=== PATIENT | male | born 1950 | race Caucasian/White ===

== ENCOUNTER 2019-01-26 15:58 | Inpatient (IN) | payer MEDICARE, MEDICAID ==
[~2019-01-26] VITALS: Ht 157.5 cm; Wt 97.5 kg
[2019-01-26 16:42] LABS: BASOPHILS # (AUTO) 0.1 /CMM (0.0-0.2); BASOPHILS % (AUTO) 0.8 % (0.0-2.0); EOSINOPHILS % (AUTO) 0.9 % (0.0-6.0); HEMATOCRIT 40 % (39-51); HEMOGLOBIN 12.8 g/dL (13.5-17.5); LYMPHOCYTES % (AUTO) 9.3 % (20.0-44.0); MEAN CORPUSCULAR HGB CONC 32 g/dl (31.0-36.0); MEAN CORPUSCULAR VOLUME 88 fL (80-96); MONOCYTES # (AUTO) 0.7 /CMM (0.1-1.30); MONOCYTES % (AUTO) 6.4 % (2.0-12.0); NEUTROPHILS # (AUTO) 8.7 /CMM (1.8-8.9); NEUTROPHILS % (AUTO) 82.6 % (43.0-81.0); PLATELET COUNT (AUTO) 224 /CMM (150-450); RED BLOOD CELL COUNT(AUTO) 4.52 MIL/uL (4.5-6.0); WHITE BLOOD COUNT (AUTO) 10.6 K/uL (4.3-11.0)
--- NOTE | 2019-01-26 16:44 | NUR ---
PATIENT ARRIVED BY WHEELCHAIR. SENT BY DR. RASCON FOR EVALUATION . PATIENT WITH C/O SOB x 2 WEEKS. NO ACUTE DISTRESS AT THIS TIME. DENIES ANY PAIN OR DISCOMFORT.
--- NOTE | 2019-01-26 16:50 | NUR ---
STREETCAR CONDUCTOR AT BEDSIDE
[2019-01-26 16:52] LABS: CALCIUM, SERUM 9.1 mg/dL (8.5-10.1); POTASSIUM 3.3 mmol/L (3.5-5.1)
[2019-01-26] MEDS ORDERED: GABA-534 PO (18:03)
[2019-01-26] MEDS ORDERED: ISOS30TA6 PO (18:03)
[2019-01-26] MEDS ORDERED: DONE5TAB34 PO (18:03)
[2019-01-26] MEDS ORDERED: LISI10TA5 PO (18:03)
[2019-01-26] MEDS ORDERED: ASPI-1152 PO (18:03)
[2019-01-26] MEDS ORDERED: ESOM40CA52 PO (18:04)
[2019-01-26] MEDS ORDERED: TRAZ150T75 PO (18:04)
[2019-01-26] MEDS ORDERED: APIX5TAB PO (18:04)
[2019-01-26] MEDS ORDERED: VALS320T16 PO (18:04)
[2019-01-26] MEDS ORDERED: ATOR40TA PO (18:04)
[2019-01-26] MEDS ORDERED: SITA1TAB6 PO (18:04)
[2019-01-26] MEDS ORDERED: TAMS-12 PO (18:04)
[2019-01-26] MEDS ORDERED: LATA2.5D7 EACHEYE (18:11)
--- NOTE | 2019-01-26 18:13 | NUR ---
COAL CAGER/MED RECON UNABLE TO OBTAINED INFO RE: HOME MEDICATION. CALLED AND OBTAINED INFO FROM [facility] (PREFERRED PHARMACY) PER PATIENT REQUESTED. PRIMARY NURSE AWARE.
[2019-01-26] MEDS ORDERED: AMLO1TAB15 PO (18:29)
[2019-01-26] MEDS ORDERED: BUME1TAB4 PO (18:29)
[2019-01-26] MEDS ORDERED: CARV3.122 PO (18:29)
[2019-01-26] MEDS ORDERED: INSU100V7 SQ (18:34)
--- NOTE | 2019-01-26 19:13 | NUR ---
GOT BED 118-2 BUT PLEASE TAKE AFTER 193
--- NOTE | 2019-01-26 21:04 | NUR ---
report given to BK SUGEY GROVE. WILL TRANSPORT Pt PER ACLS PROTOCOL.
[2019-01-26 21:07] VITALS: BP 117/80
--- NOTE | 2019-01-26 21:07 | NUR ---
BOWLING BALL PATCHERROVING TESTER LABORATORY NOTE PATIENT ARRIVED IN [facility] FROM ER. PATIENT ABLE TO WALK TO BED, GAIT STEADY. PATIENT A.O X 4. PATIENT C/O OF SOB. PATIENT PLACED ON 5 L 02, SATURATION POST EXERCISE IN THE HIGH 80'S MD AWARE. PATIENT AFIB ON THE MONITOR HR CONTROLLED INT HE 70'S. PATIENT DENIES CHEST PAIN. PATIENT PRESENTS WITH RALES BILATERALLY IN THE LOWER LOBES. SKIN IS GROSSLY INTACT. LFA 18 G IV PATENT NO S.S OF INFECTION AND INFILTRATION. PATIENT ORIENTED TO UNIT, GOALS FOR STAY EXPLAINED. PATIENT VERBALIZES UNDERSTANDING. SAFETY PRECAUTIONS IN PLACE, BED RAILS UP X 2. RN WILL CONTINUE TO MONITOR FOR ACUTE CHANGES.
--- NOTE | 2019-01-26 21:50 | NUR ---
STEEL CRANE OPERATOR NOTE PATIENT SATURATION LOW IN THE HIGH 80'S MD AWARE, PATIENT SOB, BUT PRESENTS NO CYANOSIS, OR CHANGE IN LOC. Addendum: 01/26/19 at 2153 by JASON PAZ RN Amended: Links added.
[2019-01-26] MEDS ORDERED: Z GUARD REMEDY 2 OZ OINT TP PRN (22:30)
[2019-01-26] MEDS ORDERED: ACETAMINOPHEN 325 MG TABLET PO PRN (22:30)
[2019-01-26] MEDS ORDERED: POTASSIUM CHLORIDE 20 MEQ TAB.PRT.SR PO ONE (22:30)
[2019-01-26] MEDS ORDERED: ONDANSETRON HCL/PF 4 MG/2 ML VIAL IVP PRN (22:30)
[2019-01-26] MEDS ORDERED: DEXTROSE 50%-WATER 50 ML DISP.SYRIN IV PRN (22:30)
[2019-01-26] MEDS ORDERED: BUMETANIDE INJ 6 MG in IV NS 0.9% 36 ML IV ONE (22:30)
[2019-01-26] MEDS: TRAZODONE 50 MG TABLET PO SCH (22:48)
[2019-01-26] MEDS ORDERED: BUMETANIDE INJ 0.25 MG/ML VIAL ONE ×2 (22:54→23:00)
[2019-01-27] VITALS (9 sets, daily range): BP systolic 117–138; BP diastolic 68–93
--- NOTE | 2019-01-27 01:00 | NUR ---
RN NOTES RECEIVED REPORT FROM SUGEY GOMEZ FOR KOBI
--- NOTE | 2019-01-27 01:28 | NUR ---
BIOINFORMATICS SOFTWARE ENGINEER NOTE POC ENDORSED TO HORTENCIA MAYES FOR KOBI
[2019-01-27 04:31] LABS: BASOPHILS # (AUTO) 0.1 /CMM (0.0-0.2); BASOPHILS % (AUTO) 0.9 % (0.0-2.0); EOSINOPHILS % (AUTO) 1.7 % (0.0-6.0); HEMATOCRIT 35 % (39-51); HEMOGLOBIN 11.4 g/dL (13.5-17.5); LYMPHOCYTES # (AUTO) 1.2 /CMM (0.8-4.8); LYMPHOCYTES % (AUTO) 18.4 % (20.0-44.0); MEAN CORPUSCULAR HGB CONC 33 g/dl (31.0-36.0); MEAN CORPUSCULAR VOLUME 86 fL (80-96); MONOCYTES # (AUTO) 0.6 /CMM (0.1-1.30); MONOCYTES % (AUTO) 9.4 % (2.0-12.0); NEUTROPHILS # (AUTO) 4.6 /CMM (1.8-8.9); NEUTROPHILS % (AUTO) 69.6 % (43.0-81.0); PLATELET COUNT (AUTO) 203 /CMM (150-450); WHITE BLOOD COUNT (AUTO) 6.6 K/uL (4.3-11.0)
[2019-01-27 04:57] LABS: ALBUMIN 3.3 g/dL (3.4-5.0); BILIRUBIN,TOTAL 0.9 mg/dL (0.2-1.0); CALCIUM, SERUM 8.6 mg/dL (8.5-10.1); CREATININE 0.9 mg/dL (0.6-1.3); MAGNESIUM 1.3 mg/dL (1.8-2.4); PHOSPHORUS 3.4 mg/dL (2.5-4.9); POTASSIUM 3.6 mmol/L (3.5-5.1); TOTAL PROTEIN, SERUM 6.9 g/dL (6.4-8.2)
[2019-01-27 05:04] LABS: THYROID STIMULATING HORMONE 3.205 uIU/mL (0.358-3.74)
--- NOTE | 2019-01-27 06:55 | NUR ---
RN NOTES PT IN STABLE CONDITION. NO ACUTE CHANGES THROUGHOUT THE SHIFT. ALL NEEDS ANTICIPATED. SAFETY MEASURES OBSERVED AT ALL TIMES. ENDORSED TO AM SHIFT RN FOR KOBI
--- NOTE | 2019-01-27 07:30 | NUR ---
RN AM SHIFT RECEIVED PATIENT FROM NIGHT NURSE, ALERT AND ORIENTED, BED IN LOW POSITION, MONITOR ON, SIDE RAILS UP, IV PATENT AND INTACT. AMBULATORY WITH ASSIST, CHANGED CONDOM CATHETER. AFIB CONTROLLED MD AWARE OF CONDITON. PEDIATRIC CLINICAL DIETICIAN SAW PATIENT ABG LABS DONE. UA SENT TO LAB.
[2019-01-27] MEDS: *INSULIN REGULAR(HUMULIN R)HUM 100 UNIT/ML VIAL SQ PRN (08:03)
[2019-01-27] MEDS: BLOOD SUGAR DIAGNOSTIC 1 EACH STRIP IN SCH ×4 (08:04→22:00)
[2019-01-27] MEDS: GABAPENTIN 300 MG CAPSULE PO SCH ×2 (08:09→16:43)
[2019-01-27] MEDS: TAMSULOSIN 0.4 MG CAP.SR.24H PO SCH ×2 (08:10→16:43)
[2019-01-27] MEDS: AMLODIPINE BESYLATE 10 MG TABLET PO SCH (08:10)
[2019-01-27] MEDS: DONEPEZIL 5 MG TABLET PO SCH (08:10)
[2019-01-27] MEDS: VALSARTAN 80 MG TABLET PO SCH (08:10)
[2019-01-27] MEDS: CARVEDILOL 3.125 MG TABLET PO SCH ×2 (08:10→16:44)
[2019-01-27] MEDS: APIXABAN 5 MG TABLET PO SCH ×2 (09:03→16:43)
[2019-01-27] MEDS: ASPIRIN EC 81 MG TABLET.DR PO SCH (09:30)
[2019-01-27 10:07] LABS: ABG BASE EXCESS 10.8 mmol/L; ABG OXYGEN SATURATION 92.5 % (92.0-98.5); ABG PCO2 65.1 mmHg (35.0-45.0); ABG PH 7.386 (7.350-7.450); ABG PO2 70.6 mmHg (75.0-100.0); AaDO2 285.6 mmHg; COHb 0.7 % (0.5-1.5); MetHb 0.3 % (0.0-1.5); O2Hb 91.6 % (94.0-97.0); SITE, ABG Right Radial; VENT MODE, BG SIMPLE MASK
[2019-01-27] MEDS: POTASSIUM CHLORIDE 20 MEQ TAB.PRT.SR PO SCH ×2 (10:30→11:16)
[2019-01-27] MEDS: Magnesium 1GM/D5W 100ML PREMIX 100 ML IV SCH ×4 (10:30→14:19)
[2019-01-27] MEDS: FUROSEMIDE 100 MG/10 ML VIAL IV SCH ×3 (10:32→17:03)
--- NOTE | 2019-01-27 11:00 | NUR ---
RN NOTE CARDIOLOGY SAW PATIENT, NEW ORDERS CARRIED OUT. PATIENT TOLERATING WELL. 1500 OUTPUT FOR SHIFT SO FAR. ARTIFACTS CONSERVATOR SAW PATIENT, ABGS DONE AWARE OF RESULTS. PATIETN IS TOLERATING SIMPLE FACE MASK AT 10 LITERS AT THIS TIME IN ORDER TO MAINTAIN O2 ABOVE 90%. CONTINUE TO MONITOR.
[2019-01-27 12:26] LABS: APPEARANCE,URINE CLEAR (CLEAR); BILIRUBIN,URINE NEGATIVE (NEGATIVE); BLOOD, URINE NEGATIVE Ery/uL (NEGATIVE); COLOR,URINE YELLOW (YELLOW); KETONES,URINE NEGATIVE (NEGATIVE); LEUKOCYTE ESTERASE ,URINE NEGATIVE (NEGATIVE); NITRITE, URINE NEGATIVE (NEGATIVE); PROTEIN,URINE NEGATIVE (NEGATIVE); UGLUCOSE NEGATIVE (NEGATIVE); UROBILINOGEN,URINE 0.2 EU/dL (0.2)
[2019-01-27 12:45] LABS: CREATININE, URINE 93.4 MG/DL (30.0-125.0); URINE TOTAL PROTEIN 30.2 mg/dL (0-11.9)
[2019-01-27] MEDS: INSULIN REGULAR, HUMAN 100 UNIT/ML 3 ML VIAL SQ PRN ×2 (12:45→21:51)
[2019-01-27 13:21] LABS: EOSINOPHIL,URINE None Seen
[2019-01-27] MEDS: ATORVASTATIN 40 MG TABLET PO SCH (18:30)
[2019-01-27] MEDS: TRAZODONE 50 MG TABLET PO SCH (21:06)
[2019-01-27] MEDS: LATANOPROST EYE DROP 0.005% 2.5 ML BOTTLE EACHEYE SCH (21:30)
[2019-01-27] MEDS: INSULIN GLARGINE, 100 UNIT/ML CARTRIDGE SQ SCH (21:31)
[2019-01-28] VITALS: BP 136/77
[2019-01-28 04:00] VITALS: BP 135/75
[2019-01-28] MEDS: INSULIN REGULAR, HUMAN 100 UNIT/ML 3 ML VIAL SQ PRN ×4 (05:41→17:46)
--- NOTE | 2019-01-28 05:57 | NUR ---
RN NOTES IN BED RECEIVED AWAKE, ALERT AND ORIENTED. ABLE TO COMMUNICATE NEEDS VERBALLY. ON AVAPAP AT MIDNIGHT, TOLERATED WELL. NO COMPLAINT OF PAIN OR DISCOMFORT. WILL ENDORSE TO NEXT SHIFT FOR CONTINUITY OF CARE.
[2019-01-28 07:05] LABS: BASOPHILS % (AUTO) 0.6 % (0.0-2.0); HEMATOCRIT 35 % (39-51); HEMOGLOBIN 11.7 g/dL (13.5-17.5); MEAN CORPUSCULAR HGB CONC 34 g/dl (31.0-36.0); MEAN CORPUSCULAR VOLUME 87 fL (80-96); MONOCYTES # (AUTO) 0.7 /CMM (0.1-1.30); MONOCYTES % (AUTO) 10.5 % (2.0-12.0); NEUTROPHILS # (AUTO) 4.5 /CMM (1.8-8.9); NEUTROPHILS % (AUTO) 70.9 % (43.0-81.0); PLATELET COUNT (AUTO) 197 /CMM (150-450); RED BLOOD CELL COUNT(AUTO) 3.99 MIL/uL (4.5-6.0); WHITE BLOOD COUNT (AUTO) 6.4 K/uL (4.3-11.0)
[2019-01-28 07:11] LABS: BILIRUBIN,TOTAL 1.1 mg/dL (0.2-1.0); CALCIUM, SERUM 8.1 mg/dL (8.5-10.1); CREATININE 0.8 mg/dL (0.6-1.3); MAGNESIUM 1.7 mg/dL (1.8-2.4); PHOSPHORUS 2.8 mg/dL (2.5-4.9); POTASSIUM 3.1 mmol/L (3.5-5.1); TOTAL PROTEIN, SERUM 6.4 g/dL (6.4-8.2)
--- NOTE | 2019-01-28 07:45 | NUR ---
RN NOTE: RECEIVED PATIENT IN BED, AWAKE, ALERT AND VERBALLY RESPONSIVE. PATIENT WAS ON BIPAP PER MD ORDER AND WILL INFORM THE RT TO REMOVE IT. ON OWNER ORAL SURGEON A. FIB CONTROLLED HR= 89. DENIED ANY PAIN. (L) FOREARM IV SITE NOTED PATENT AND INTACT. HOB ELEVATED. BED ALARMED AND LOCKED AT ALL TIMES. CALL LIGHT WITHIN REACH. NEEDS ANTICIPATED.
[2019-01-28] MEDS: BLOOD SUGAR DIAGNOSTIC 1 EACH STRIP IN SCH ×4 (07:49→21:34)
[2019-01-28 08:00] VITALS: BP 137/77
--- NOTE | 2019-01-28 09:05 | NUR ---
RN NOTE: SPOKE WITH DR. TAMEZ IN THE UNIT AND MADE HIM AWARE ABOUT THE PATIENT'S CONDITION FROM LAST NIGHT PER PM SHIFT NURSE. PER PM SHIFT NURSE, THE PATIENT WAS DESATURATING AT 83% LAST NIGHT AND WAS PLACED ON BIPAP. CLARIFIED WITH MD REGARDING THE O2 SATURATION. PER DR. TAMEZ, OK TO KEEP THE PATIENT'S O2 SATURATION BETWEEN 88-90%. ORDER, NOTED AND CARRIED OUT. PATIENT MADE AWARE.
[2019-01-28 09:11] LABS: ABG BASE EXCESS 12.6 mmol/L; ABG OXYGEN SATURATION 85.4 % (92.0-98.5); ABG PCO2 61.5 mmHg (35.0-45.0); ABG PH 7.425 (7.350-7.450); ABG PO2 51.4 mmHg (75.0-100.0); AaDO2 192.2 mmHg; COHb 1.2 % (0.5-1.5); MetHb 0.4 % (0.0-1.5); SITE, ABG Right Radial; VENT MODE, BG 6L NC
--- NOTE | 2019-01-28 09:18 | NUR ---
RN NOTE: INFORMED DR. TAMEZ REGARDING THE ABG RESULT THIS MORNING WITH O2 6L/MIN VIA NC AND PATIENT WAS SATURATING 85%. PER MD, SWITCH TO VENTURI MASK TO TITRATE O2 SATURATION BETWEEN 88-90%. RT DIAZ WAS MADE AWARE.
[2019-01-28] MEDS: TAMSULOSIN 0.4 MG CAP.SR.24H PO SCH ×2 (09:33→17:14)
[2019-01-28] MEDS: VALSARTAN 80 MG TABLET PO SCH (09:34)
[2019-01-28] MEDS: DONEPEZIL 5 MG TABLET PO SCH (09:35)
[2019-01-28] MEDS: AMLODIPINE BESYLATE 10 MG TABLET PO SCH (09:35)
[2019-01-28] MEDS: GABAPENTIN 300 MG CAPSULE PO SCH ×2 (09:35→17:14)
[2019-01-28] MEDS: ASPIRIN EC 81 MG TABLET.DR PO SCH (09:35)
[2019-01-28] MEDS: CARVEDILOL 3.125 MG TABLET PO SCH ×2 (09:36→17:39)
[2019-01-28] MEDS: APIXABAN 5 MG TABLET PO SCH ×2 (09:37→17:14)
[2019-01-28] MEDS: FUROSEMIDE 40 MG/4 ML VIAL IV SCH ×3 (10:35→17:14)
[2019-01-28] MEDS: Magnesium 1GM/D5W 100ML PREMIX 100 ML IV SCH ×2 (10:35→11:48)
[2019-01-28] MEDS: POTASSIUM CHLORIDE 20 MEQ TAB.PRT.SR PO SCH ×5 (10:36→14:56)
[2019-01-28 12:00] VITALS: BP 128/80
[2019-01-28 16:00] VITALS: BP 109/66
[2019-01-28] MEDS: ATORVASTATIN 40 MG TABLET PO SCH (17:14)
--- NOTE | 2019-01-28 19:44 | NUR ---
RN NOTE: SPOKE WITH DR. FAROOQ REGARDING THE PATIENT'S DOWNGRADE TO MEDSURG, BUT PATIENT HAS AN ORDER FOR NOCTURNAL BIPAP. PER DR. FAROOQ, OK TO KEEP THE PATIENT ON TELEMETRY. BEDSIDE REPORT GIVEN TO PM SHIFT NURSE FOR CONTINUITY OF CARE. PATIENT REMAINED ON STABLE CONDITION.
--- NOTE | 2019-01-28 19:55 | NUR ---
RN NOTE: BEDSIDE REPORT GIVEN TO PM SHIFT NURSE FOR CONTINUITY OF CARE. PATIENT WAS S/P SACRAL WOUND DEBRIDEMENT TODAY. PATIENT TOLERATED IT WELL AND WAS ASLEEP WHILE THE PROCEDURE WAS BEING PERFORMED AT THE BEDSIDE BY RAYA MEADE.
[2019-01-28 20:00] VITALS: BP 102/70
[2019-01-28] MEDS: LATANOPROST EYE DROP 0.005% 2.5 ML BOTTLE EACHEYE SCH (21:34)
[2019-01-28] MEDS: TRAZODONE 50 MG TABLET PO SCH (21:34)
[2019-01-28] MEDS: INSULIN GLARGINE, 100 UNIT/ML CARTRIDGE SQ SCH (22:02)
[2019-01-28] MEDS: *INSULIN REGULAR(HUMULIN R)HUM 100 UNIT/ML VIAL SQ PRN (22:03)
[2019-01-29] VITALS: BP 108/60
[2019-01-29 04:00] VITALS: BP 128/80
--- NOTE | 2019-01-29 06:47 | NUR ---
SALES AND MARKETING SPECIALIST NOTES AWAKE & RESPONSIVE. NOT IN ANY DISTRESS. NO SOB NOTED. DENIES ANY PAIN OR DISCOMFORT AT THIS TIME. ON TELE SB @ 53 WITH IV-HL PATENT & INTACT. MONITORED ACCORDINGLY. CALL LIGHT WITHIN REACH. BED IN LOWEST POSITION.. SR UP X 2 FOR SAFETY. WILL ENDORSE TO NEXT SHIFT.
--- NOTE | 2019-01-29 07:30 | NUR ---
RN OPENING NOTE RECEIVED PATIENT IN BED, ASLEEP WITH HIS BIPAP ON. EASILY AROUSABLE. ON TELE MONITOR, STEVEN AT 60s. HAS AN ORDER TO TRANSFER TO [facility] FROM DR RASCON. WILL REMOVE TELE MONITOR. HAS A CONDOM CATH, CATCHING CLEAR AND YELLOW URINE. HAS GENERALIZED EDEMA. BED LOCKED AND IN LOW POSITION. CALL LIGHT WITHIN REACH. WILL CONT TO MONITOR PATIENT.
[2019-01-29 07:31] LABS: BASOPHILS % (AUTO) 0.4 % (0.0-2.0); EOSINOPHILS % (AUTO) 4.2 % (0.0-6.0); HEMATOCRIT 34 % (39-51); HEMOGLOBIN 11.4 g/dL (13.5-17.5); LYMPHOCYTES # (AUTO) 1.1 /CMM (0.8-4.8); MEAN CORPUSCULAR HGB CONC 34 g/dl (31.0-36.0); MEAN CORPUSCULAR VOLUME 86 fL (80-96); MONOCYTES # (AUTO) 0.7 /CMM (0.1-1.30); NEUTROPHILS # (AUTO) 4.7 /CMM (1.8-8.9); NEUTROPHILS % (AUTO) 69.4 % (43.0-81.0); PLATELET COUNT (AUTO) 197 /CMM (150-450); RED BLOOD CELL COUNT(AUTO) 3.93 MIL/uL (4.5-6.0); WHITE BLOOD COUNT (AUTO) 6.8 K/uL (4.3-11.0)
[2019-01-29 07:46] LABS: ALBUMIN 2.9 g/dL (3.4-5.0); CALCIUM, SERUM 8.2 mg/dL (8.5-10.1); CREATININE 0.8 mg/dL (0.6-1.3); MAGNESIUM 1.9 mg/dL (1.8-2.4); PHOSPHORUS 3.3 mg/dL (2.5-4.9); POTASSIUM 3.7 mmol/L (3.5-5.1); TOTAL PROTEIN, SERUM 6.3 g/dL (6.4-8.2)
[2019-01-29] MEDS: BLOOD SUGAR DIAGNOSTIC 1 EACH STRIP IN SCH ×4 (07:59→21:43)
[2019-01-29 08:00] VITALS: BP 111/70
[2019-01-29] MEDS: GABAPENTIN 300 MG CAPSULE PO SCH ×2 (08:11→16:45)
[2019-01-29] MEDS: AMLODIPINE BESYLATE 10 MG TABLET PO SCH (08:11)
[2019-01-29] MEDS: TAMSULOSIN 0.4 MG CAP.SR.24H PO SCH ×2 (08:11→16:45)
[2019-01-29] MEDS: ASPIRIN EC 81 MG TABLET.DR PO SCH (08:11)
[2019-01-29] MEDS: DONEPEZIL 5 MG TABLET PO SCH (08:12)
[2019-01-29] MEDS: CARVEDILOL 3.125 MG TABLET PO SCH ×2 (08:12→16:45)
[2019-01-29] MEDS: APIXABAN 5 MG TABLET PO SCH ×2 (08:12→16:45)
[2019-01-29] MEDS: VALSARTAN 80 MG TABLET PO SCH (08:12)
[2019-01-29] MEDS: INSULIN REGULAR, HUMAN 100 UNIT/ML 3 ML VIAL SQ PRN ×4 (08:17→21:53)
[2019-01-29 12:58] LABS: ABG BASE EXCESS 11.4 mmol/L; ABG PCO2 57.2 mmHg (35.0-45.0); ABG PH 7.437 (7.350-7.450); ABG PO2 58.2 mmHg (75.0-100.0); AaDO2 161.2 mmHg; MetHb 0.5 % (0.0-1.5); O2Hb 87.7 % (94.0-97.0); SITE, ABG Right Radial; VENT MODE, BG NC AT 5LPM
[2019-01-29] MEDS ORDERED: IV NS 0.9% 250 ML IV ONE (15:18)
[2019-01-29] MEDS ORDERED: IOHEXOL-300 100 ML VIAL IV ONE (15:18)
[2019-01-29] MEDS ORDERED: CT SWABBABLE VALVE TRANS SET 1 EA INFUS.SET MC ONE (15:19)
[2019-01-29 16:00] VITALS: BP 121/74
[2019-01-29] MEDS: ATORVASTATIN 40 MG TABLET PO SCH (17:55)
--- NOTE | 2019-01-29 18:55 | NUR ---
RN CLOSING NOTE PATIENT SITTING ON THE CHAIR ALERT AND ORIENTED. ON 5L NC. SATING 88-90%. NO SOB REPORTED OR ANY PAIN. ATE 100% ALL MEALS. ALL NEEDS ARE MET. STABLE ALL THROUGHOUT THE DAY. WILL ENDORSE TO NOC SHIFT
--- NOTE | 2019-01-29 19:15 | NUR ---
MEDICAL ORDERLY NOTE PATIENT RESTING IN BED, AOX3, ON 5L O2 VIA NC, O2 SAT 90%, NO S/SX OF RESPIRATORY OR CARDIAC DISTRESS, SKIN KEPT CLEAN AND DRY, LFA #18G, CONDOM CATHETER DRAINING YELLOW URINE, PATENT FLUSHING WELL, DRESSING IS DRY AND INTACT, DENIES PAIN, SAFETY MAINTAINED AT ALL TIMES, BED IN LOW LOCKED POSITION, CALL LIGHT WITHIN REACH, WILL CONTINUE TO MONITOR FOR ANY CHANGES IN CONDITION.
[2019-01-29] MEDS: LATANOPROST EYE DROP 0.005% 2.5 ML BOTTLE EACHEYE SCH (21:43)
[2019-01-29] MEDS: TRAZODONE 50 MG TABLET PO SCH (21:43)
[2019-01-29] MEDS: INSULIN GLARGINE, 100 UNIT/ML CARTRIDGE SQ SCH (21:52)
[2019-01-30] VITALS: BP 125/75
[2019-01-30 04:00] VITALS: BP 133/79
[2019-01-30 06:52] LABS: BASOPHILS # (AUTO) 0.1 /CMM (0.0-0.2); BASOPHILS % (AUTO) 0.7 % (0.0-2.0); EOSINOPHILS % (AUTO) 4.2 % (0.0-6.0); HEMATOCRIT 39 % (39-51); HEMOGLOBIN 12.9 g/dL (13.5-17.5); LYMPHOCYTES # (AUTO) 1.5 /CMM (0.8-4.8); LYMPHOCYTES % (AUTO) 19.5 % (20.0-44.0); MEAN CORPUSCULAR HGB CONC 34 g/dl (31.0-36.0); MEAN CORPUSCULAR VOLUME 87 fL (80-96); MONOCYTES # (AUTO) 0.6 /CMM (0.1-1.30); MONOCYTES % (AUTO) 8.3 % (2.0-12.0); NEUTROPHILS # (AUTO) 5.2 /CMM (1.8-8.9); NEUTROPHILS % (AUTO) 67.3 % (43.0-81.0); PLATELET COUNT (AUTO) 232 /CMM (150-450); RED BLOOD CELL COUNT(AUTO) 4.45 MIL/uL (4.5-6.0); WHITE BLOOD COUNT (AUTO) 7.8 K/uL (4.3-11.0)
[2019-01-30 07:04] LABS: ALBUMIN 3.5 g/dL (3.4-5.0); BILIRUBIN,TOTAL 1.1 mg/dL (0.2-1.0); CREATININE 0.8 mg/dL (0.6-1.3); POTASSIUM 3.8 mmol/L (3.5-5.1); TOTAL PROTEIN, SERUM 7.5 g/dL (6.4-8.2)
--- NOTE | 2019-01-30 07:20 | NUR ---
MS RN INITIAL NOTE PATIENT RESTING IN BED, AOX3, ON 5L O2 VIA NC, O2 SAT 88%, NO S/S OF RESPIRATORY OR CARDIAC DISTRESS, SKIN WILL KEEP CLEAN AND DRY, LFA #18G SL, PATENT FLUSHING WELL, DRESSING IS DRY AND INTACT, DENIES PAIN, SAFETY WILL BE MAINTAINED AT ALL TIMES, BED IN LOW LOCKED POSITION, CALL LIGHT WITHIN REACH, WILL CONTINUE TO MONITOR FOR ANY CHANGES IN CONDITION.
[2019-01-30] MEDS: BLOOD SUGAR DIAGNOSTIC 1 EACH STRIP IN SCH ×4 (07:49→21:37)
[2019-01-30 08:00] VITALS: BP 142/77
[2019-01-30] MEDS: INSULIN REGULAR, HUMAN 100 UNIT/ML 3 ML VIAL SQ PRN ×3 (08:25→18:19)
[2019-01-30] MEDS: TAMSULOSIN 0.4 MG CAP.SR.24H PO SCH ×2 (08:26→18:01)
[2019-01-30] MEDS: VALSARTAN 80 MG TABLET PO SCH (08:26)
[2019-01-30] MEDS: ASPIRIN EC 81 MG TABLET.DR PO SCH (08:26)
[2019-01-30] MEDS: CARVEDILOL 3.125 MG TABLET PO SCH ×2 (08:27→18:01)
[2019-01-30] MEDS: DONEPEZIL 5 MG TABLET PO SCH (08:27)
[2019-01-30] MEDS: AMLODIPINE BESYLATE 10 MG TABLET PO SCH (08:27)
[2019-01-30] MEDS: GABAPENTIN 300 MG CAPSULE PO SCH ×2 (08:27→18:01)
[2019-01-30] MEDS: APIXABAN 5 MG TABLET PO SCH ×2 (08:34→18:01)
[2019-01-30] MEDS: FUROSEMIDE 40 MG TABLET PO SCH (11:59)
--- NOTE | 2019-01-30 12:50 | NUR ---
MS RN NOTES PATIENT ROUNDING WITH MD.
[2019-01-30 16:00] VITALS: BP_SYST 129; BP_DIAS 73; BP_DIAS 75
[2019-01-30] MEDS: ATORVASTATIN 40 MG TABLET PO SCH (18:00)
[2019-01-30 18:03] LABS: ABG BASE EXCESS 6.4 mmol/L; ABG OXYGEN SATURATION 91.7 % (92.0-98.5); ABG PCO2 54.7 mmHg (35.0-45.0); ABG PH 7.395 (7.350-7.450); AaDO2 192.6 mmHg; COHb 0.9 % (0.5-1.5); MetHb 0.5 % (0.0-1.5); O2Hb 90.4 % (94.0-97.0); SITE, ABG Right Brachial; VENT MODE, BG simple mask
--- NOTE | 2019-01-30 19:15 | NUR ---
MS RN OPENING NOTES Received patient A/O x3, awake sitting on chair at bedside with O2 inhalation via face mask to maintain saturation 88-90%. No SOB/respiratory distress noted, patient denied discomfort at this time. Kept clean, dry and comfortable. Call light at bedside, will continue to monitor accordingly.
--- NOTE | 2019-01-30 20:00 | NUR ---
MS RN INITIAL NOTE PATIENT RESTING IN BED, AOX3, ON 5L O2 VIA SIMPLE MASK, O2 SAT 90%, NO S/S OF RESPIRATORY OR CARDIAC DISTRESS, SKIN KEPT CLEAN AND DRY, LFA #18G SL, PATENT FLUSHING WELL, DRESSING IS DRY AND INTACT, DENIES PAIN, SAFETY MAINTAINED AT ALL TIMES, BED IN LOW LOCKED POSITION, CALL LIGHT WITHIN REACH, NO ACUTE CHANGES THROUGHOUT SHIFT, ALL MD ORDERS ATTENDED, ENDORSED TO SEAM SEWER NURSE FOR KOBI. Addendum: 01/30/19 at 2104 by JUVENCIO HARDY RN CLARIFICATION CLOSING NOTES
--- NOTE | 2019-01-30 20:30 | NUR ---
MS RN NOTES RT notified assigned RN that patient is refusing BiPAP machine. Together with RT, RN explained the importance of using BiPAP and the risks if the patient will not use the machine especially when sleeping. Patient claimed he is not comfortable with the BiPAP and that it did not make a difference with his sleep the other night. Patient is on simple mask @ 9LMP. Will continue to monitor SpO2 maintaining at 88-90% as ordered.
--- NOTE | 2019-01-30 20:38 | NUR ---
SPOKE TO PATIENT THAT HE NEEDED TO HAVE BIPAP (AVAP) MACHINE ON AT NIGHT. PT WAS REFUSING AND STATED THAT HE COULDN'T SLEEP THE OTHER NIGHT WITH IT ON AND TO TELL THE DOCTOR THAT HE DOESN'T WANT IT ANYMORE. BROUGHT RN MARKUS INTO ROOM SO WE COULD EXPLAIN WHY HE NEEDS THE MACHINE AT NIGHT AND PT IS STILL REFUSING AND WANTS TO STAY ON HIS SIMPLE MASK. PT IS ON SIMPLE MASK 9L.
--- NOTE | 2019-01-30 20:57 | NUR ---
PT IS ON SIMPLE MASK AT 6L. RN AWARE
[2019-01-30] MEDS: *INSULIN REGULAR(HUMULIN R)HUM 100 UNIT/ML VIAL SQ PRN (21:36)
[2019-01-30] MEDS: INSULIN GLARGINE, 100 UNIT/ML CARTRIDGE SQ SCH (21:36)
[2019-01-30] MEDS: TRAZODONE 50 MG TABLET PO SCH (21:37)
[2019-01-30] MEDS: LATANOPROST EYE DROP 0.005% 2.5 ML BOTTLE EACHEYE SCH (21:37)
--- NOTE | 2019-01-31 02:48 | NUR ---
MS RN NOTES Patient asleep at this time noted with HR going down with lowest noted 38bpm via continuous pulse ox monitor. Awaken patient, checked for pulse. HR increased to above 70 while awake, pulse noted regular. Patient in face mask with O2 at 9LPM, saturating 90%. Patient refused the use of BiPAP despite the explanations due to discomfort and patient claimed nothing different from his sleep last night with BiPAP on. Will continue to monitor the patient closely.
[2019-01-31 04:00] VITALS: BP 120/72
--- NOTE | 2019-01-31 06:33 | NUR ---
MS RN CLOSING NOTES Patient noted asleep at this time on high-Fischer's position with simple face mask at 9LPM saturating 90%. All nursing needs attended. Able to sit on bedside commode with minimal difficulty noted but not distressing the patient. Kept the patient clean, dry and comfortable. BM x1 noted. Call light within easy reach. Kept bed in lowest position. Endorsed to the next shift.
[2019-01-31] MEDS: BLOOD SUGAR DIAGNOSTIC 1 EACH STRIP IN SCH ×4 (06:42→22:27)
[2019-01-31 07:01] LABS: BASOPHILS % (AUTO) 0.6 % (0.0-2.0); HEMATOCRIT 36 % (39-51); HEMOGLOBIN 11.8 g/dL (13.5-17.5); LYMPHOCYTES # (AUTO) 0.8 /CMM (0.8-4.8); LYMPHOCYTES % (AUTO) 12.3 % (20.0-44.0); MEAN CORPUSCULAR HGB CONC 33 g/dl (31.0-36.0); MEAN CORPUSCULAR VOLUME 86 fL (80-96); MONOCYTES # (AUTO) 0.5 /CMM (0.1-1.30); NEUTROPHILS # (AUTO) 4.9 /CMM (1.8-8.9); NEUTROPHILS % (AUTO) 74.1 % (43.0-81.0); PLATELET COUNT (AUTO) 214 /CMM (150-450); RED BLOOD CELL COUNT(AUTO) 4.11 MIL/uL (4.5-6.0); WHITE BLOOD COUNT (AUTO) 6.6 K/uL (4.3-11.0)
[2019-01-31 07:15] LABS: CALCIUM, SERUM 8.7 mg/dL (8.5-10.1); CREATININE 0.7 mg/dL (0.6-1.3); PHOSPHORUS 4.4 mg/dL (2.5-4.9); POTASSIUM 3.9 mmol/L (3.5-5.1)
--- NOTE | 2019-01-31 07:15 | NUR ---
MS RN INITIAL NOTE PATIENT SLEEPING IN BED, BUT EASY TO AROUSE. AOX3, ON 9L O2 VIA SIMPLE MASK, O2 SAT 90%, HOB ON SEMI FOWLERS, NO S/S OF RESPIRATORY OR CARDIAC DISTRESS, SKIN KEPT CLEAN AND DRY, LFA #18G SL, PATENT FLUSHING WELL, DRESSING IS DRY AND INTACT, DENIES PAIN, SAFETY WILL BE MAINTAINED AT ALL TIMES, BED IN LOW LOCKED POSITION, CALL LIGHT WITHIN REACH, WILL CONT TO MONITOR PT.
[2019-01-31 08:00] VITALS: BP 136/92
[2019-01-31] MEDS: APIXABAN 5 MG TABLET PO SCH ×2 (08:25→17:02)
[2019-01-31] MEDS: VALSARTAN 80 MG TABLET PO SCH (08:36)
[2019-01-31] MEDS: ASPIRIN EC 81 MG TABLET.DR PO SCH (08:37)
[2019-01-31] MEDS: DONEPEZIL 5 MG TABLET PO SCH (08:37)
[2019-01-31] MEDS: AMLODIPINE BESYLATE 10 MG TABLET PO SCH (08:38)
[2019-01-31] MEDS: CARVEDILOL 3.125 MG TABLET PO SCH ×2 (08:39→17:03)
[2019-01-31] MEDS: TAMSULOSIN 0.4 MG CAP.SR.24H PO SCH ×2 (08:39→17:02)
[2019-01-31] MEDS: FUROSEMIDE 40 MG TABLET PO SCH (08:40)
[2019-01-31] MEDS: GABAPENTIN 300 MG CAPSULE PO SCH ×2 (08:40→17:02)
[2019-01-31] MEDS: INSULIN REGULAR, HUMAN 100 UNIT/ML 3 ML VIAL SQ PRN ×2 (11:19→18:33)
[2019-01-31] MEDS ORDERED: acetaZOLAMIDE 250 MG TABLET PO ONE (12:00)
--- NOTE | 2019-01-31 12:40 | NUR ---
MS RN NOTES PATIENT ROUNDING WITH MD. WILL ATTEND TO ALL MD ORDERS.
[2019-01-31 16:00] VITALS: BP 127/80
[2019-01-31] MEDS: ATORVASTATIN 40 MG TABLET PO SCH (18:14)
--- NOTE | 2019-01-31 19:20 | NUR ---
MS RN CLOSING NOTES PATIENT SITTING ON CHAIR, AOX3, ON 8L O2 VIA SIMPLE MASK, O2 SAT 93%, NO S/S OF RESPIRATORY OR CARDIAC DISTRESS, SKIN KEPT CLEAN AND DRY, LFA #18G SL, PATENT FLUSHING WELL, DRESSING IS DRY AND INTACT, DENIES PAIN, SAFETY MAINTAINED AT ALL TIMES, BED IN LOW LOCKED POSITION, CALL LIGHT WITHIN REACH, NO ACUTE CHANGES THROUGHOUT SHIFT, ALL MD ORDERS ATTENDED, ALL NEEDS MET. ENDORSED TO PUBLISHING EDITOR NURSE FOR KOBI.
[2019-01-31 20:00] VITALS: BP 100/59
--- NOTE | 2019-01-31 21:00 | NUR ---
PT REFUSED BIPAP, STATED HE CANT SLEEP WITH BIPAP MASK ON HIS FACE. RT AND CHARGE NURSE MADE AWARE
--- NOTE | 2019-01-31 21:03 | NUR ---
PATIENT REQUESTED TO BE OFF AVAP FOR THE NIGHT BECAUSE OF LIRA MAKING IT DIFFICULT TO WEAR AVAP MASK AND WILL STAY ON O2 MASK INSTEAD UNTIL LIRA IS SHAVED OFF. RN IS NOTIFIED. Addendum: 01/31/19 at 2105 by RAHUL TERESA RT Amended: Links added.
[2019-01-31] MEDS: LATANOPROST EYE DROP 0.005% 2.5 ML BOTTLE EACHEYE SCH (22:28)
[2019-01-31] MEDS: INSULIN GLARGINE, 100 UNIT/ML CARTRIDGE SQ SCH (22:28)
[2019-01-31] MEDS: *INSULIN REGULAR(HUMULIN R)HUM 100 UNIT/ML VIAL SQ PRN (22:30)
[2019-01-31] MEDS: TRAZODONE 50 MG TABLET PO SCH (22:39)
[2019-02-01] VITALS: BP 98/56
--- NOTE | 2019-02-01 00:10 | NUR ---
PT NOTED WITH DECREASED HR, HR RANGES 30-60'S, PT AWAKE ,ALERT , ASYMPTOMATIC, DENIES PAIN. MD FREDDY AT BEDSIDE, STAT EKG DONE, MD AWARE OF RESULTS. MD WITH NEW ORDER TO ADD TROPONIN AND ABG'S TO AM LABS AND ORDER TELE MONITOR FOR CLOSE MONITORING. PT STATUS UPGRADED FROM MS TO TELE. WILL CONTINUE TO MONITOR PT.
[2019-02-01 04:00] VITALS: BP 111/69
[2019-02-01 07:04] LABS: BASOPHILS % (AUTO) 0.5 % (0.0-2.0); EOSINOPHILS % (AUTO) 3.8 % (0.0-6.0); HEMATOCRIT 36 % (39-51); HEMOGLOBIN 11.9 g/dL (13.5-17.5); LYMPHOCYTES % (AUTO) 14.6 % (20.0-44.0); MEAN CORPUSCULAR HGB CONC 33 g/dl (31.0-36.0); MEAN CORPUSCULAR VOLUME 87 fL (80-96); MONOCYTES # (AUTO) 0.6 /CMM (0.1-1.30); MONOCYTES % (AUTO) 8.8 % (2.0-12.0); NEUTROPHILS # (AUTO) 4.9 /CMM (1.8-8.9); NEUTROPHILS % (AUTO) 72.3 % (43.0-81.0); PLATELET COUNT (AUTO) 211 /CMM (150-450); RED BLOOD CELL COUNT(AUTO) 4.19 MIL/uL (4.5-6.0); WHITE BLOOD COUNT (AUTO) 6.7 K/uL (4.3-11.0)
[2019-02-01 07:15] LABS: CALCIUM, SERUM 8.7 mg/dL (8.5-10.1); CREATININE 0.8 mg/dL (0.6-1.3); POTASSIUM 4.1 mmol/L (3.5-5.1)
[2019-02-01] MEDS: INSULIN REGULAR, HUMAN 100 UNIT/ML 3 ML VIAL SQ PRN ×3 (07:59→17:45)
[2019-02-01 08:00] VITALS: BP 121/72
--- NOTE | 2019-02-01 08:00 | NUR ---
FAST FOOD TEAM MEMBER NOTE RECEIVED PATIENT IN BED , ALERT , ORIENTED X3 ,ON NONREBREATHER MASK 15L ,SAT 92% T THIS TIME , ON TELE MONITOR SR 61 , ABLE TO HAVE BREAKFAST SELF , LT RA HL INTACT , ALL NEEDS ATTENDED ,PLAN OF CARE DISCUSSED WITH PATIENT WITH SLIGHT SOB NOTED , WILL CONT TO MONITOR CLOSELY
[2019-02-01] MEDS: TAMSULOSIN 0.4 MG CAP.SR.24H PO SCH ×2 (08:09→16:46)
[2019-02-01] MEDS: DONEPEZIL 5 MG TABLET PO SCH (08:09)
[2019-02-01] MEDS: VALSARTAN 80 MG TABLET PO SCH (08:09)
[2019-02-01] MEDS: FUROSEMIDE 40 MG TABLET PO SCH (08:10)
[2019-02-01] MEDS: PANTOPRAZOLE 40 MG TABLET.DR PO SCH (08:10)
[2019-02-01] MEDS: APIXABAN 5 MG TABLET PO SCH ×2 (08:10→16:47)
[2019-02-01] MEDS: AMLODIPINE BESYLATE 10 MG TABLET PO SCH (08:11)
[2019-02-01] MEDS: CARVEDILOL 3.125 MG TABLET PO SCH ×2 (08:11→16:50)
[2019-02-01] MEDS: ASPIRIN EC 81 MG TABLET.DR PO SCH (08:11)
[2019-02-01] MEDS: BLOOD SUGAR DIAGNOSTIC 1 EACH STRIP IN SCH ×4 (08:16→22:00)
[2019-02-01] MEDS: GABAPENTIN 300 MG CAPSULE PO SCH ×2 (09:22→16:47)
--- NOTE | 2019-02-01 09:29 | NUR ---
BOARD SAW RUNNER NOTE SITTING UP ON CHAIR, PLACED ON 7L NC, SAT 88% NO C\O OF ANY DISCOMFORT AT THIS TIME
[2019-02-01] MEDS ORDERED: BUMETANIDE INJ 8 MG in IV NS 0.9% 48 ML IV ONE (10:30)
--- NOTE | 2019-02-01 11:24 | NUR ---
VULNERABILITY RESEARCHER NOTE SEEN BY DR SHERMAN, AWARE THAT LAST NIGHT PATIENT HAD SB HR 30-45 ,STARTED ON BUMEX DRIP ORDERED ,UP ON CHAIR ,STILL SAT 88% ON 7 L OF O2 VIA NC
[2019-02-01 12:00] VITALS: BP 130/73
[2019-02-01 13:46] LABS: ABG BASE EXCESS 3.6 mmol/L; ABG OXYGEN SATURATION 87.8 % (92.0-98.5); ABG PCO2 51.8 mmHg (35.0-45.0); ABG PH 7.377 (7.350-7.450); ABG PO2 56.1 mmHg (75.0-100.0); AaDO2 205.8 mmHg; COHb 0.8 % (0.5-1.5); MetHb 0.6 % (0.0-1.5); O2Hb 86.6 % (94.0-97.0); SITE, ABG Right Brachial; VENT MODE, BG NASAL CANNULA
--- NOTE | 2019-02-01 14:00 | NUR ---
HAND CARVER NOTE RT AT BEDSIDE, ABG DONE ORDERED PLACED BACK ON NONREBREATHER MASK .WILL F\U ,SAT 93% AT THIS TIME
--- NOTE | 2019-02-01 14:26 | NUR ---
FACULTY DEAN NOTE DR HERNANDEZ ACCOUNTANT MACHINE PROCESSING AT BEDSIDE ,AWARE OF ABG RESULT OK TO CONT NONREBREATHER MASK AT THIS TIME , WILL CONT TO MONITOR CLOSELY
[2019-02-01 16:00] VITALS: BP 112/75
[2019-02-01] MEDS: ATORVASTATIN 40 MG TABLET PO SCH (17:52)
--- NOTE | 2019-02-01 18:47 | NUR ---
RN PROCEDURES NOTE PLACED BACK TO BED, ALL NEEDS ATTENDED USING BSC, ABLE TO URINATE WELL , CALL LIGHT WITHIN REACH , ON NONREBREATHER MAS 15L, SAT 95%, WILL CONT TO MONITOR CLOSELY
--- NOTE | 2019-02-01 19:35 | NUR ---
RN INITIAL NTES: RECEIVED REPORT FROM MARTY MAYES. PT IN BED, AWAKE, A/O X3 ON NRB MASK 15L, ON CONTINUOUS PULSE OXIMETRY AT BED SIDE SPO2 93-95%, DENIES ANY SOB OR CHEST PAIN. IV ACCESS PATENT AND FLUSHING WELL, ON HL. BIPAP AT NIGHT, PER REPORT PT REFUSED FOR IT. ON SINUS STEVEN HR 60'S PER REPORT HR GOES DOWN TO 30'S STAPLE SHEAR OPERATOR MADE AWARE. SAFETY PRECAUTIONS FOR FALL INITIATED, CALL LIGHT IN REACH, WILL CONTINUE MONITORING PT.
[2019-02-01 20:00] VITALS: BP_SYST 105; BP_SYST 116; BP_DIAS 52; BP_DIAS 78
[2019-02-01] MEDS: INSULIN GLARGINE, 100 UNIT/ML CARTRIDGE SQ SCH (22:00)
[2019-02-01] MEDS: TRAZODONE 50 MG TABLET PO SCH (22:11)
--- NOTE | 2019-02-01 22:18 | NUR ---
refusal for accu check: pt refused blood sugar check, he was upset and stated sick and tired of checking his sugar, and the noise and his bipap, educate pt regarding importance of glucose check, pt remains to refused, unable to give insulin and lant seo intern made aware
[2019-02-01] MEDS ORDERED: LATANOPROST EYE DROP 0.005% 2.5 ML BOTTLE ONE (22:27)
[2019-02-01] MEDS: LATANOPROST EYE DROP 0.005% 2.5 ML BOTTLE EACHEYE SCH (22:30)
--- NOTE | 2019-02-01 22:33 | NUR ---
rn notes: pt refused using bipap, he said it keps coming off and slipping, aklthouhg on the bipap no leak is sjowing and no audible alarm/noise heard, pt refused using it and instead wants his nrb mask, stated he sleeps better with it. education provided to the pt, on continuous pulse ox spo2 95% on nrb 15L
--- NOTE | 2019-02-01 23:14 | NUR ---
RT NOTE PT KEEPS COMPLAINING OF MASK DISCOMFORT AND WANTS TO TAKE IT OFF. PT PLACED ON NRB MASK FOR THE NIGHT. RN IS AWARE.
[2019-02-02] VITALS (9 sets, daily range): BP systolic 100–128; BP diastolic 62–74
--- NOTE | 2019-02-02 06:32 | NUR ---
RN CLOSING NOTES: PT IN BED, AWAKE, REMAINS ON NRB MASK 15L, ON CONTINOUS PULSE OXIMETRY SPO2 94%, REMAINS ON SINUS STEVEN HR 60. DENIES ANY PAIN OR DISCOMFORT AT THIS TIME. VS REMAINS STABLE, NEEDS ATTENDED. SAFETY PRECAUTIONS FOR FALL INITIATED, CALL LIGHT IN REACH, WILL ENDORSE TO DAY RN FOR CONTINUITY OF CARE.
--- NOTE | 2019-02-02 07:30 | NUR ---
RECEIVED PATIENT ON NRBM ALET AND ORIENT X3 SAT 100% , PT STATES WAS UNABLE TO TOLERATE BIPAP , BUT FEELS BETTER ON NRM , PT DENIES CHEST PAIN , VITAL STABLE , WILL CONTINUE TO MONITOR HEPLOCK TO LEFT FORE ARM INTACT CALL LIGHT WITHIN REACH
[2019-02-02 07:55] LABS: BASOPHILS # (AUTO) 0.1 /CMM (0.0-0.2); BASOPHILS % (AUTO) 0.9 % (0.0-2.0); EOSINOPHILS % (AUTO) 4.3 % (0.0-6.0); HEMATOCRIT 36 % (39-51); HEMOGLOBIN 11.8 g/dL (13.5-17.5); LYMPHOCYTES % (AUTO) 13.5 % (20.0-44.0); MEAN CORPUSCULAR HGB CONC 33 g/dl (31.0-36.0); MEAN CORPUSCULAR VOLUME 87 fL (80-96); MONOCYTES # (AUTO) 0.6 /CMM (0.1-1.30); MONOCYTES % (AUTO) 8.6 % (2.0-12.0); NEUTROPHILS # (AUTO) 5.4 /CMM (1.8-8.9); NEUTROPHILS % (AUTO) 72.7 % (43.0-81.0); PLATELET COUNT (AUTO) 223 /CMM (150-450); RED BLOOD CELL COUNT(AUTO) 4.18 MIL/uL (4.5-6.0); WHITE BLOOD COUNT (AUTO) 7.4 K/uL (4.3-11.0)
[2019-02-02] MEDS: BLOOD SUGAR DIAGNOSTIC 1 EACH STRIP IN SCH ×4 (08:03→21:21)
[2019-02-02] MEDS: INSULIN REGULAR, HUMAN 100 UNIT/ML 3 ML VIAL SQ PRN ×2 (08:03→18:09)
[2019-02-02] MEDS: PANTOPRAZOLE 40 MG TABLET.DR PO SCH (08:03)
[2019-02-02 08:07] LABS: CALCIUM, SERUM 8.7 mg/dL (8.5-10.1); MAGNESIUM 1.9 mg/dL (1.8-2.4); POTASSIUM 3.9 mmol/L (3.5-5.1)
[2019-02-02] MEDS: FUROSEMIDE 40 MG TABLET PO SCH (08:40)
[2019-02-02] MEDS: GABAPENTIN 300 MG CAPSULE PO SCH ×2 (08:40→17:07)
[2019-02-02] MEDS: DONEPEZIL 5 MG TABLET PO SCH (08:40)
[2019-02-02] MEDS: TAMSULOSIN 0.4 MG CAP.SR.24H PO SCH ×2 (08:40→17:07)
[2019-02-02] MEDS: ASPIRIN EC 81 MG TABLET.DR PO SCH (08:41)
[2019-02-02] MEDS: VALSARTAN 80 MG TABLET PO SCH (08:45)
[2019-02-02] MEDS: CARVEDILOL 3.125 MG TABLET PO SCH ×2 (08:45→17:08)
[2019-02-02] MEDS: APIXABAN 5 MG TABLET PO SCH ×2 (08:46→17:08)
[2019-02-02] MEDS: *INSULIN REGULAR(HUMULIN R)HUM 100 UNIT/ML VIAL SQ PRN ×2 (12:54→21:30)
[2019-02-02] MEDS ORDERED: BUMETANIDE INJ 8 MG in IV NS 0.9% 48 ML IV ONE (15:30)
[2019-02-02] MEDS: ATORVASTATIN 40 MG TABLET PO SCH (17:07)
--- NOTE | 2019-02-02 19:30 | NUR ---
REGIONAL VICE PRESIDENT LIFE SALES OPENING NOTES Received patient in bed, alert, oriented x 3. Patient is on venturi mask at 15L saturating 93%. Denies SOB. Tele monitor in place- a-fib 60. Safety measures in place; call light within reach. Bed in low, locked position. Encouraged to call for assistance. Patient stable as endorsed by the morning RN. Will continue to monitor accordingly
[2019-02-02] MEDS: TRAZODONE 50 MG TABLET PO SCH (21:21)
--- NOTE | 2019-02-02 21:22 | NUR ---
RN NOTES BSL- 227mg/dL. Insulin given per sliding scale
[2019-02-02] MEDS: LATANOPROST EYE DROP 0.005% 2.5 ML BOTTLE EACHEYE SCH (21:23)
[2019-02-02] MEDS: INSULIN GLARGINE, 100 UNIT/ML CARTRIDGE SQ SCH (21:29)
[2019-02-03] VITALS (7 sets, daily range): BP systolic 108–145; BP diastolic 45–82
--- NOTE | 2019-02-03 06:27 | NUR ---
RAILROAD SUPERVISOR OF ENGINES CLOSING NOTES Patient still sleeping in bed, easily arousable. Breathing even and unlabored. Not in any distress. On venturi mask @ 15LPM, saturating at 92%. Tele monitor in place- a-fib 65. No complaints as of this time. All needs attended to. All due medications given as ordered. Safety measures in place. Call light within reach. Bed in low, locked position. Will endorse KOBI to oncoming RN
--- NOTE | 2019-02-03 07:43 | NUR ---
SIDE SEAM TENDER OPENING NOTES RECEIVED PATIENT AWAKE IN BED A/O X3 ON NON REBREATHER @ 10 LTRS SATURATING 100% CHANGED TO NASAL CANNULA @ 5 LTRS SATURATING @ 94% NO SIGNS OR SYMPTOMS OF RESPIRATORY DISTRESS OR ACUTE PAIN. IV ACCESS TO RFA # 18 GAUGED PATENT WITH NO WARMTH OR REDNESS NOTED. SAFETY PRECAUTIONS IN PLACE BED IN LOW POSITION CALL LIGHT WITHIN REACH. WILL CONT TO MONITOR
[2019-02-03 07:47] LABS: BASOPHILS # (AUTO) 0.1 /CMM (0.0-0.2); BASOPHILS % (AUTO) 0.9 % (0.0-2.0); EOSINOPHILS % (AUTO) 3.8 % (0.0-6.0); HEMATOCRIT 36 % (39-51); HEMOGLOBIN 11.8 g/dL (13.5-17.5); LYMPHOCYTES # (AUTO) 1.1 /CMM (0.8-4.8); LYMPHOCYTES % (AUTO) 15.2 % (20.0-44.0); MEAN CORPUSCULAR HGB CONC 33 g/dl (31.0-36.0); MEAN CORPUSCULAR VOLUME 85 fL (80-96); MONOCYTES # (AUTO) 0.6 /CMM (0.1-1.30); MONOCYTES % (AUTO) 8.9 % (2.0-12.0); NEUTROPHILS % (AUTO) 71.2 % (43.0-81.0); PLATELET COUNT (AUTO) 226 /CMM (150-450); RED BLOOD CELL COUNT(AUTO) 4.18 MIL/uL (4.5-6.0); WHITE BLOOD COUNT (AUTO) 7.1 K/uL (4.3-11.0)
[2019-02-03] MEDS: BLOOD SUGAR DIAGNOSTIC 1 EACH STRIP IN SCH ×4 (07:55→21:22)
[2019-02-03 07:57] LABS: ALBUMIN 3.2 g/dL (3.4-5.0); BILIRUBIN,TOTAL 1.2 mg/dL (0.2-1.0); CALCIUM, SERUM 8.6 mg/dL (8.5-10.1); CREATININE 0.9 mg/dL (0.6-1.3); MAGNESIUM 1.8 mg/dL (1.8-2.4); PHOSPHORUS 3.7 mg/dL (2.5-4.9); POTASSIUM 3.5 mmol/L (3.5-5.1)
[2019-02-03] MEDS: ASPIRIN EC 81 MG TABLET.DR PO SCH (08:18)
[2019-02-03] MEDS: GABAPENTIN 300 MG CAPSULE PO SCH ×2 (08:18→16:55)
[2019-02-03] MEDS: CARVEDILOL 3.125 MG TABLET PO SCH ×2 (08:18→16:57)
[2019-02-03] MEDS: PANTOPRAZOLE 40 MG TABLET.DR PO SCH (08:18)
[2019-02-03] MEDS: DONEPEZIL 5 MG TABLET PO SCH (08:18)
[2019-02-03] MEDS: VALSARTAN 80 MG TABLET PO SCH (08:18)
[2019-02-03] MEDS: TAMSULOSIN 0.4 MG CAP.SR.24H PO SCH ×2 (08:19→16:55)
[2019-02-03] MEDS: APIXABAN 5 MG TABLET PO SCH ×2 (08:19→16:57)
[2019-02-03] MEDS: FUROSEMIDE 40 MG TABLET PO SCH (08:19)
[2019-02-03] MEDS: INSULIN REGULAR, HUMAN 100 UNIT/ML 3 ML VIAL SQ PRN ×4 (08:20→21:24)
[2019-02-03 10:11] LABS: ABG BASE EXCESS 7.9 mmol/L; ABG OXYGEN SATURATION 91.5 % (92.0-98.5); ABG PCO2 47.5 mmHg (35.0-45.0); ABG PH 7.459 (7.350-7.450); ABG PO2 62.9 mmHg (75.0-100.0); AaDO2 167.7 mmHg; COHb 0.6 % (0.5-1.5); MetHb 0.7 % (0.0-1.5); O2Hb 90.3 % (94.0-97.0); SITE, ABG Right Radial; VENT MODE, BG 5L/MIN N/C
[2019-02-03] MEDS ORDERED: acetaZOLAMIDE SODIUM 500 MG/VIAL VIAL IV ONE (11:30)
[2019-02-03] MEDS: POTASSIUM CHLORIDE 20 MEQ TAB.PRT.SR PO SCH ×3 (12:06→14:08)
[2019-02-03] MEDS: ATORVASTATIN 40 MG TABLET PO SCH (16:58)
--- NOTE | 2019-02-03 17:58 | NUR ---
TENDER LABOR NOTES TITRATED PATIENT OXYGEN THROUGHPUT THE SHIFT. CURRENTLY ON 3 LTRS AND SATURATING @ 95%. AMBULATORY TO BATHROOM AND SITTING IN CHAIR.
--- NOTE | 2019-02-03 19:04 | NUR ---
CAR RUNNER CLOSING NOTES BEDSIDE REPORT GIVEN TO NOC PATIENT AWAKE IN BED A/O X3 ON 3 LTRS NASAL CANNULA SATURATING 93-97% GOAL OF 88-90% NO SIGNS OR SYMPTOMS OF RESPIRATORY DISTRESS OR ACUTE PAIN.AMBULATORY TO BATHROOM IV ACCESS TO RFA # 18 GAUGED PATENT WITH NO WARMTH OR REDNESS NOTED. SAFETY PRECAUTIONS IN PLACE BED IN LOW POSITION CALL LIGHT WITHIN REACH. WILL ENDORSE KOBI
[2019-02-03] MEDS: LATANOPROST EYE DROP 0.005% 2.5 ML BOTTLE EACHEYE SCH (21:21)
[2019-02-03] MEDS: TRAZODONE 50 MG TABLET PO SCH (21:22)
[2019-02-03] MEDS: INSULIN GLARGINE, 100 UNIT/ML CARTRIDGE SQ SCH (21:27)
[2019-02-04] VITALS (10 sets, daily range): BP systolic 111–133; BP diastolic 61–82
--- NOTE | 2019-02-04 06:47 | NUR ---
CAMERA SYSTEMS ENGINEER CLOSING NOTES PATIENT SLEEPING AT THIS TIME BU AROUSABLE TO VERBAL STIMULI, ON NASAL CANNULA @ 3LPM SATURATING 93-96% GOAL OF 88-90% NO SIGNS OR SYMPTOMS OF SOB/RESPIRATORY DISTRESS OR PAIN OR DISCOMFORT THROUGHOUT THE NIGHT, ALL NEEDS PROVIDED, SAFETY PRECAUTIONS IN PLACE, BED IN LOW POSITION , CALL LIGHT WITHIN REACH. WILL ENDORSE CONTINUITY OF CARE TO ONCOMING NURSE.
--- NOTE | 2019-02-04 07:15 | NUR ---
RN OPENING NOTE RECEIVED PATIENT ASLEEP, EASILY AROUSABLE. PATIENT AMBULATED BY HIMSELF TO THE BATHROOM. ALERT AND ORIENTED X3-4. ON 3L NASAL CANNULA. NO COMPLAINS OF ANY SOB OR PAIN AT THIS TIME. HAS A RIGHT FORE ARM #18 SALINE LOCKED. HAS A TELE MONITOR, TENDS TO BE STEVEN AT TIMES ESPECIALLY WHEN SLEEPING. HAS AN ORDER FOR DC PLANNING BUT PATIENT IS REFUSING TO GO TO [facility] AND WANTS TO GO HOME. CALL LIGHT WITHIN REACH. BED IN LOWEST POSITION. WILL CONTINUE TO MONITOR PATIENT THROUGH OUT THE DAY.
[2019-02-04] MEDS: BLOOD SUGAR DIAGNOSTIC 1 EACH STRIP IN SCH ×4 (07:46→21:57)
[2019-02-04 07:49] LABS: BASOPHILS # (AUTO) 0.1 /CMM (0.0-0.2); BASOPHILS % (AUTO) 0.9 % (0.0-2.0); EOSINOPHILS % (AUTO) 3.9 % (0.0-6.0); HEMATOCRIT 36 % (39-51); HEMOGLOBIN 11.6 g/dL (13.5-17.5); LYMPHOCYTES # (AUTO) 1.1 /CMM (0.8-4.8); MEAN CORPUSCULAR HGB CONC 33 g/dl (31.0-36.0); MEAN CORPUSCULAR VOLUME 86 fL (80-96); MONOCYTES # (AUTO) 0.7 /CMM (0.1-1.30); MONOCYTES % (AUTO) 10.4 % (2.0-12.0); NEUTROPHILS # (AUTO) 4.6 /CMM (1.8-8.9); NEUTROPHILS % (AUTO) 67.8 % (43.0-81.0); PLATELET COUNT (AUTO) 233 /CMM (150-450); RED BLOOD CELL COUNT(AUTO) 4.16 MIL/uL (4.5-6.0); WHITE BLOOD COUNT (AUTO) 6.8 K/uL (4.3-11.0)
[2019-02-04 07:56] LABS: CALCIUM, SERUM 8.7 mg/dL (8.5-10.1); CREATININE 0.9 mg/dL (0.6-1.3); POTASSIUM 3.7 mmol/L (3.5-5.1)
[2019-02-04] MEDS: VALSARTAN 80 MG TABLET PO SCH (08:09)
[2019-02-04] MEDS: GABAPENTIN 300 MG CAPSULE PO SCH ×2 (08:09→16:45)
[2019-02-04] MEDS: ASPIRIN EC 81 MG TABLET.DR PO SCH (08:09)
[2019-02-04] MEDS: PANTOPRAZOLE 40 MG TABLET.DR PO SCH (08:10)
[2019-02-04] MEDS: TAMSULOSIN 0.4 MG CAP.SR.24H PO SCH ×2 (08:10→16:45)
[2019-02-04] MEDS: CARVEDILOL 3.125 MG TABLET PO SCH ×2 (08:10→16:46)
[2019-02-04] MEDS: DONEPEZIL 5 MG TABLET PO SCH (08:10)
[2019-02-04] MEDS: FUROSEMIDE 40 MG TABLET PO SCH (08:10)
[2019-02-04] MEDS: APIXABAN 5 MG TABLET PO SCH ×2 (08:10→16:46)
[2019-02-04] MEDS: INSULIN REGULAR, HUMAN 100 UNIT/ML 3 ML VIAL SQ PRN ×3 (08:14→17:45)
--- NOTE | 2019-02-04 15:53 | NUR ---
RN NOTE PER DR TAMEZ'S ORDER: PATIENT AMBULATED TO THE HALLWAY WITH HIS O2 VIA NC AT 5L. LOWEST O2 SAT RECORDED WAS 90%. NO COMPLAINS OF ANY SOB. DR TABOR ON BEDSIDE DISCUSSING POSSIBLE DISCHARGE. PT AGREES TO HAVE A BIPAP MACHINE AT HOME BUT REFUSES TO GO TO [facility]. PER DR TAMEZ, PATIENT WILL HAVE AN ABG TOMORROW MORNING.
[2019-02-04] MEDS: ATORVASTATIN 40 MG TABLET PO SCH (17:24)
--- NOTE | 2019-02-04 18:46 | NUR ---
RN CLOSING NOTE PATIENT ON CHAIR WATCHING TV. ALERT AND ORIENTED. ALL NEEDS MET. ALL MEDS ARE GIVEN. NO COMPLAINS OF ANY PAIN OR SOB. DC PLANNING FOR TOMORROW. ABG ORDERED BY DOCTOR TAMEZ TOMORROW MORNING AT 0800. PATIENT STEADY, AMBULATORY. CALL LIGHT WITHIN REACH. WILL ENDORSE TO NOC SHIFT RN
--- NOTE | 2019-02-04 19:35 | NUR ---
BK RN OPENING NOTE RECEIVED PATIENT AWAKE SITTING IN THE CHAIR. PATIENT IS ALERT AND ORIENTED X4. ON 5L O2 VIA NASAL CANNULA WITH SPO2 OF 99%. NO COMPLAINS OF ANY SOB OR PAIN AT THIS TIME. HAS A RIGHT FOREARM #18 SALINE LOCK IV LINE. HAS A TELE MONITOR, TENDS TO BE STEVEN AT TIMES ESPECIALLY WHEN SLEEPING. HAS AN ORDER FOR DC PLANNING BUT PATIENT IS REFUSING TO GO TO [place] AND WANTS TO GO HOME. CALL LIGHT WITHIN REACH. BED IN LOWEST POSITION. WILL CONTINUE TO MONITOR PATIENT THROUGH OUT THE NIGHT.
--- NOTE | 2019-02-04 21:44 | NUR ---
PLACED PT ON BIPAP (AVAP) MODE AT THIS TIME. MEPILEX PLACED AROUND NOSE. PT SAY HE IS COMFORTABLE. WILL CONT TO MONITOR PT. Addendum: 02/04/19 at 2146 by JESICA RIVAS RT Amended: Links added.
[2019-02-04] MEDS: TRAZODONE 50 MG TABLET PO SCH (22:01)
[2019-02-04] MEDS: LATANOPROST EYE DROP 0.005% 2.5 ML BOTTLE EACHEYE SCH (22:02)
[2019-02-04] MEDS: INSULIN GLARGINE, 100 UNIT/ML CARTRIDGE SQ SCH (22:03)
[2019-02-04] MEDS: *INSULIN REGULAR(HUMULIN R)HUM 100 UNIT/ML VIAL SQ PRN (22:05)
--- NOTE | 2019-02-04 22:54 | NUR ---
PT WANTED THE BIPAP OFF AT THIS TIME AND TO BE PLACED BACK ON 5LNC. WILL CONT TO MONITOR PT. Addendum: 02/04/19 at 2255 by JESICA RIVAS RT Amended: Links added.
[2019-02-05] VITALS: BP 124/71
[2019-02-05 04:00] VITALS: BP 125/80
[2019-02-05 04:26] VITALS: BP 125/80
--- NOTE | 2019-02-05 07:10 | NUR ---
CHEESE PACKER OPENING NOTES RECEIVED PT LYING ON BED.ALERT/ORIENTED X4.ON NC 5L O2 CONTINUOUSLY,TOLERATING WELL.ON TELE HR IS 60 WITH SR.NO SOB AND ACUTE DISTRESS NOTED.CAN AMBULATE WITH ASSISTANCE.IV LINE IS ON RIGHT FA G18,IV SITE IS CLEAN,DRY AND INTACT,NO INFILTRATION NOTED.SAFETY IS MAINTAINED AT ALL TIMES.BED IS IN LOW POSITION AND LOCKED.CALL LIGHT IS WITHIN REACH.WILL CONTINUE TO MONITOR THE PT CLOSELY.
[2019-02-05 07:30] LABS: BASOPHILS # (AUTO) 0.1 /CMM (0.0-0.2); BASOPHILS % (AUTO) 1.2 % (0.0-2.0); HEMATOCRIT 35 % (39-51); HEMOGLOBIN 11.6 g/dL (13.5-17.5); LYMPHOCYTES # (AUTO) 1.2 /CMM (0.8-4.8); LYMPHOCYTES % (AUTO) 19.8 % (20.0-44.0); MEAN CORPUSCULAR HGB CONC 34 g/dl (31.0-36.0); MEAN CORPUSCULAR VOLUME 85 fL (80-96); MONOCYTES # (AUTO) 0.6 /CMM (0.1-1.30); MONOCYTES % (AUTO) 9.6 % (2.0-12.0); NEUTROPHILS % (AUTO) 65.4 % (43.0-81.0); PLATELET COUNT (AUTO) 236 /CMM (150-450); WHITE BLOOD COUNT (AUTO) 6.1 K/uL (4.3-11.0)
[2019-02-05 07:48] LABS: CALCIUM, SERUM 8.7 mg/dL (8.5-10.1); CREATININE 0.8 mg/dL (0.6-1.3); POTASSIUM 3.7 mmol/L (3.5-5.1)
[2019-02-05 08:00] VITALS: BP 134/76
[2019-02-05] MEDS: BLOOD SUGAR DIAGNOSTIC 1 EACH STRIP IN SCH ×2 (08:12→12:18)
[2019-02-05] MEDS: INSULIN REGULAR, HUMAN 100 UNIT/ML 3 ML VIAL SQ PRN ×2 (08:17→12:19)
[2019-02-05 09:26] LABS: ABG OXYGEN SATURATION 84.5 % (92.0-98.5); ABG PCO2 45.4 mmHg (35.0-45.0); ABG PH 7.398 (7.350-7.450); ABG PO2 49.6 mmHg (75.0-100.0); AaDO2 96.5 mmHg; COHb 0.9 % (0.5-1.5); MetHb 0.4 % (0.0-1.5); O2Hb 83.4 % (94.0-97.0); SITE, ABG Right Radial; VENT MODE, BG 2L NC SITTING UP
[2019-02-05] MEDS: TAMSULOSIN 0.4 MG CAP.SR.24H PO SCH (09:29)
[2019-02-05] MEDS: DONEPEZIL 5 MG TABLET PO SCH (09:29)
[2019-02-05] MEDS: FUROSEMIDE 40 MG TABLET PO SCH (09:29)
[2019-02-05] MEDS: GABAPENTIN 300 MG CAPSULE PO SCH (09:29)
[2019-02-05] MEDS: CARVEDILOL 3.125 MG TABLET PO SCH (09:30)
[2019-02-05] MEDS: APIXABAN 5 MG TABLET PO SCH (09:30)
[2019-02-05] MEDS: VALSARTAN 80 MG TABLET PO SCH (09:30)
[2019-02-05] MEDS: ASPIRIN EC 81 MG TABLET.DR PO SCH (09:31)
[2019-02-05] MEDS: PANTOPRAZOLE 40 MG TABLET.DR PO SCH (09:32)
[2019-02-05 12:00] VITALS: BP 129/74
[2019-02-05] MEDS ORDERED: VALS80TA2 PO (14:22)
--- NOTE | 2019-02-05 15:35 | NUR ---
HEMODIALYSIS TECHNICIANWEB DEVELOPER PROGRAMMER NOTES PT IS DISCHARGE TO HOME WITH FRIEND HANNA HUMPHREY.ON 1 L O2 VIA PORTABLE O2 MACHINE,SATURATING WELL.NO SOB AND ACUTE DISTRESS NOTED.ALL THE DISCHARGE MEDICATIONS AND FOLLOW UP APPOINTMENTS ARE DISCUSSED WITH PT AND WITH FRIEND AT BEDSIDE.IV LINE IS REMOVED.BELONGING LIST SIGNED BY THE PT.THE PT IS AMBULATED TO THE PARKING LOT WITH FRIEND MILAGRO,SAID THE PT DOESN'T WANT ACCOMPANY BY ANYBODY.NO COMPLICATIONS NOTED.
== END 2019-02-05 15:35 | disposition home or self-care (01) | DRG 205 ==
LOC: ER 15:58 → TELE1 20:07 → MEDSG1 01-28 10:20 → TELE1 01-28 10:29 → MEDSG1 01-29 07:48 → TELE1 02-01 01:03
PROVIDERS: ADMIT Nurse Practitioner Acute Care; ATTEND Family Medicine
PROC: 5A09457 Assistance with Respiratory Ventilation, 24-96 Consecutive Hours, Continuous Positive Airway Pressure (ICD-10-PCS; principal; 2019-01-27)
DX: E66.2 Morbid (severe) obesity with alveolar hypoventilation (principal); I50.31 Acute diastolic (congestive) heart failure; J96.21 Acute and chronic respiratory failure with hypoxia; J96.22 Acute and chronic respiratory failure with hypercapnia; E87.3 Alkalosis; R18.8 Other ascites; J98.11 Atelectasis; K76.6 Portal hypertension; Z68.41 Body mass index [BMI] 40.0-44.9, adult; E44.1 Mild protein-calorie malnutrition; I11.0 Hypertensive heart disease with heart failure; E11.65 Type 2 diabetes mellitus with hyperglycemia; M19.90 Unspecified osteoarthritis, unspecified site; E78.5 Hyperlipidemia, unspecified; E83.42 Hypomagnesemia; E87.6 Hypokalemia; F03.90 Unspecified dementia, unspecified severity, without behavioral disturbance, psychotic disturbance, mood disturbance, and anxiety; Z79.4 Long term (current) use of insulin; Z79.82 Long term (current) use of aspirin; Z79.84 Long term (current) use of oral hypoglycemic drugs; Z79.899 Other long term (current) drug therapy; I25.10 Atherosclerotic heart disease of native coronary artery without angina pectoris; Z95.5 Presence of coronary angioplasty implant and graft; Z91.19 Patient's noncompliance with other medical treatment and regimen; Z79.01 Long term (current) use of anticoagulants; Z87.891 Personal history of nicotine dependence; J98.4 Other disorders of lung; F09 Unspecified mental disorder due to known physiological condition; K74.60 Unspecified cirrhosis of liver; N40.0 Benign prostatic hyperplasia without lower urinary tract symptoms; I70.0 Atherosclerosis of aorta; I48.2 Chronic atrial fibrillation
CPT/HCPCS: 36415; 36600; 71045-TC; 80048-TC; 80053-TC; 80061-TC; 81000-TC; 82570-TC; 82803-TC; 82962-TC; 83735-TC; 83880; 84100-TC; 84155-TC; 84300-TC; 84443-TC; 84484-TC; 85025-TC; 87081-TC; 93307-TC; 94760-TC; 94762-TC; 94799-TC; 97116-TC; 97530-TC; A4216; A4349; A6402; G0378; J1120; J1815; J1940; J3475; J3490; J7030; J7050; Q9967